=== PATIENT | male | born 1975 | race Caucasian/White ===

== ENCOUNTER 2020-07-23 20:55 | Emergency (ER) | payer MEDICAID ==
[~2020-07-23] VITALS: Ht 185.4 cm; Wt 82.7 kg
[2020-07-23 21:06] VITALS: BP 110/59
--- NOTE | 2020-07-23 21:45 | NUR ---
pt presented to ED c/o right shoulder pain and limited ROM. Denies significant phx.
== END 2020-07-23 21:51 | disposition home or self-care (01) ==
LOC: ER 20:56
DX: M25.511 Pain in right shoulder (principal); R53.83 Other fatigue; F17.200 Nicotine dependence, unspecified, uncomplicated
CPT/HCPCS: 73030; 99284